=== PATIENT | female | born 1935 ===

== ENCOUNTER 2017-01-08 11:05 | Day surgery (SDC) | payer MEDICARE, OTHER ==
[~2017-01-08] VITALS: Ht 147.3 cm; Wt 63.6 kg
[~2017-01-08 11:05] MED LIST: AMITRIPTYLINE H10 M1 PO; ARICEPT10 MG PO; ASPIRIN 81M81 MG/TA2 PO; BETAPACEAF120 PO; BRILINTA90 MG PO; CALCIUM 600/VIT1 CAP PO; CEPHALEXIN500 M1 PO; CLARITIN 1010 MG/TAB PO; COLACE 100100 MG/CAP PO; EVISTA 60MG60 MG/TAB PO; GLUCOSAMIN 500 PO; IRON325 MG PO; LOPRESSOR 225 MG/TAB PO; MULTI VITAMINS1 TAB PO; NAMENDA5 MG PO; NITROSTAT0.4 MG/TAB SL; NORVASC 5MG5 MG/TAB PO; OMEGA 31000 MG PO; PRILOSEC 20MG20 MG PO; PRINIVIL40 MG PO; SYNTHROID0.05 MG/TA PO; TYLENOL 500MG500 MG PO; VOLTAREN 75 DR75 MG PO; VYTORIN 10 MG-41 TAB PO; ZOLOFT 50MG50 MG PO
[2017-01-08 11:58] LABS: HEMATOCRIT 37.4 % (37.0-47.0); HEMOGLOBIN 12.4 g/dl (12.5-16.0); MEAN CELL VOLUME 89 fl (80.0-100.0); MEAN CORPUSCULAR HEMOGLOBIN 30 pg (27.0-31.0); MEAN CORPUSCULAR HGB CONC 33 g/dl (33.0-37.0); MEAN PLATELET VOLUME 9.5 fl (7.4-10.4); PLATELET COUNT 235 K/mm3 (130-400); RED BLOOD COUNT 4.21 M/mm3 (4.10-5.30); REDCELL DISTRIBUTION WIDTH-CV 13.2 % (11.5-14.5); WHITE BLOOD COUNT 6.9 K/mm3 (4.8-10.8)
[2017-01-08 11:59] LABS: PROTHROMBIN TIME 11.3 SECONDS (9.7-12.8)
[2017-01-08 12:21] LABS: CALCIUM 9.4 mg/dL (8.4-10.2); CREATININE, serum 0.72 mg/dL (0.52-1.25); POTASSIUM 3.9 mmol/L (3.4-5.0)
[2017-01-08] MEDS ORDERED: BUSPAR10 MG PO (12:53)
[2017-01-08] MEDS ORDERED: PRILOSEC 20MG20 MG PO (12:58)
[2017-01-08] MEDS ORDERED: REMERON SOLTAB30 MG PO (13:00)
[2017-01-08 13:32] VITALS: BP 147/81; PULSE 60; TEMP 98.3
[2017-01-08 14:32] VITALS: BP 172/86; PULSE 62
[2017-01-08 16:28] VITALS: BP 177/71; PULSE 62; TEMP 98.2
[2017-01-08 16:58] VITALS: BP 159/86; PULSE 56
[2017-01-08 19:41] VITALS: BP 166/79; PULSE 66
[2017-01-08 23:02] VITALS: BP 137/82; PULSE 76; TEMP 98.2
[2017-01-09 02:31] VITALS: BP 163/88; PULSE 79; TEMP 98.5
[2017-01-09 08:52] VITALS: BP 152/80; PULSE 74; TEMP 98
[2017-01-09 12:57] VITALS: BP 128/61; PULSE 63; TEMP 98.3
[2017-01-09] MEDS ORDERED: CEPHALEXIN500 M1 PO (13:39)
[2017-01-09 20:20] VITALS: BP 112/57; PULSE 77; TEMP 98.2
== END 2017-01-09 18:10 ==
LOC: COL.CAR 11:05 → MEDICAL 16:28 → COL.CAR 01-09 18:10
PROVIDERS: Internal Medicine Cardiovascular Disease
DX: I48.0 Paroxysmal atrial fibrillation (principal); I49.5 Sick sinus syndrome; Z79.01 Long term (current) use of anticoagulants; Z95.5 Presence of coronary angioplasty implant and graft; F03.90 Unspecified dementia, unspecified severity, without behavioral disturbance, psychotic disturbance, mood disturbance, and anxiety; I10 Essential (primary) hypertension; I71.9 Aortic aneurysm of unspecified site, without rupture
CPT/HCPCS: OP; C1769; C1785; C1898; J0690; J2250; J3010; J7030